=== PATIENT | female | born 1960 | race Caucasian/White ===

== ENCOUNTER → 2016-05-14 | Outpatient (CLI) | payer BC ==
--- NOTE | 2016-05-17 09:05 | MM ---
Reason for exam: screening (asymptomatic). Last mammogram was performed 1 year and 1 month ago. History: Patient is postmenopausal. Benign right US cyst aspiration of the right breast, April 20, 2005. Physical Findings: A clinical breast exam by your physician is recommended on an annual basis and results should be correlated with mammographic findings. MG Screening Mammo w CAD Bilateral CC and MLO view(s) were taken. Prior study comparison: April 25, 2015, bilateral MG screening mammo w CAD. December 25, 2012, bilateral digital screening mammo w/CAD. There are scattered fibroglandular densities. There is no discrete abnormality. No significant changes when compared with prior studies. ASSESSMENT: Negative, BI-RAD 1 RECOMMENDATION: Routine screening mammogram of both breasts in 1 year.
== END | disposition home or self-care (01) ==
LOC: RADMAMWWP 07:42
PROVIDERS: ATTEND Obstetrics & Gynecology
DX: Z12.31 Encounter for screening mammogram for malignant neoplasm of breast (principal); E55.9 Vitamin D deficiency, unspecified; Z13.29 Encounter for screening for other suspected endocrine disorder; Z13.1 Encounter for screening for diabetes mellitus; Z13.220 Encounter for screening for lipoid disorders
CPT/HCPCS: 84439; 80061; 82947; 84443; 82306; 36415; G0202

== ENCOUNTER → 2017-06-13 | Outpatient (CLI) | payer BC ==
--- NOTE | 2017-06-13 09:18 | BD ---
EXAMINATION TYPE: MG DEXA axial skeleton. DATE OF EXAM: 06/13/2017 COMPARISON: 2016 CLINICAL HISTORY: osteoporosis. Postmenopausal female. Height: 5'3 1/2 Weight: 125 FRAX RISK QUESTIONS: Alcohol (3 or more units per day): no Family History (Parent hip fracture): no Glucocorticoids (More than 3mos): no (Ex: prednisone, prednisolone, methylprednisolone, dexamethasone, and hydrocortisone). History of Fracture in Adulthood: no Secondary Osteoporosis: 1. Type 1 Diabetes: no 2. Hyperthyroidism: no 3. Menopause before 45: no 4. Malnutrition: no 5. Chronic liver disease: no Rheumatoid Arthritis: no Current Tobacco Use: no RISK FACTORS HISTORY OF: Postmenopausal woman: MEDICATIONS: Additional Medications: sleep aid Additional History: EXAM MEASUREMENTS: Bone mineral densitometry was performed using the [employer] System. Bone mineral density as measured about the Lumbar spine is: ----- L1-L4(G/cm2): 1.000 T Score Values are as follows: ----- L2: -1.2 ----- L3: -0.9 ----- L4: -2.4 ----- L1-L4: -1.5 Bone mineral density has: Decreased -3.2sincestudy of: 04/25/2015 Bone mineral density about the R hip (g/cm2): 0.756 Bone mineral density about the L hip (g/cm2): 0.791 T Score values are as follows: -----R Neck: -2.0 -----L Neck: -1.8 -----R Total: -1.3 -----L Total: -1.1 Bone mineral density has: Decreased -2.6sincestudy of: 04/25/2015 IMPRESSION: Osteopenia (T Score between -2.5 and -1). There is slightly increased risk of fracture and the patient may be considered for treatment. Re-Screen 2-5 years. NOTE: T-SCORE=SD OF THE YOUNG ADULT MEAN.
[2017-06-13 09:53] LABS: T4, Free (Free Thyroxine) 0.85 ng/dL (0.78-2.19)
--- NOTE | 2017-06-14 09:35 | MM ---
Reason for exam: screening (asymptomatic). Last mammogram was performed 1 year and 1 month ago. History: Patient is postmenopausal and history of other cancer. Benign right US cyst aspiration of the right breast, April 20, 2005. Physical Findings: A clinical breast exam by your physician is recommended on an annual basis and results should be correlated with mammographic findings. MG Screening Mammo w CAD Bilateral CC and MLO view(s) were taken. Prior study comparison: May 14, 2016, bilateral MG screening mammo w CAD. April 25, 2015, bilateral MG screening mammo w CAD. The breast tissue is heterogeneously dense. This may lower the sensitivity of mammography. There is no discrete abnormality. No significant changes when compared with prior studies. ASSESSMENT: Negative, BI-RAD 1 RECOMMENDATION: Routine screening mammogram of both breasts in 1 year.
== END | disposition home or self-care (01) ==
LOC: RADMAMWWP 07:43
PROVIDERS: ATTEND Obstetrics & Gynecology
DX: Z12.31 Encounter for screening mammogram for malignant neoplasm of breast (principal); M85.80 Other specified disorders of bone density and structure, unspecified site; E55.9 Vitamin D deficiency, unspecified; Z13.29 Encounter for screening for other suspected endocrine disorder; Z13.1 Encounter for screening for diabetes mellitus; Z13.220 Encounter for screening for lipoid disorders
CPT/HCPCS: 36415; 77067; 77080; 80061; 82306; 82947; 84439; 84443

== ENCOUNTER → 2018-07-19 | Outpatient (CLI) | payer BC ==
[2018-07-19 08:37] LABS: T4, Free (Free Thyroxine) 1.16 ng/dL (0.78-2.19)
--- NOTE | 2018-07-19 14:12 | MM ---
Reason for exam: screening (asymptomatic). Last mammogram was performed 1 year and 1 month ago. History: Patient is postmenopausal and history of other cancer. Benign right US cyst aspiration of the right breast, April 20, 2005. Physical Findings: A clinical breast exam by your physician is recommended on an annual basis and results should be correlated with mammographic findings. MG Screening Mammo w CAD Bilateral CC and MLO view(s) were taken. Prior study comparison: June 13, 2017, bilateral MG screening mammo w CAD. May 14, 2016, bilateral MG screening mammo w CAD. The breast tissue is heterogeneously dense. This may lower the sensitivity of mammography. There is no discrete abnormality. ASSESSMENT: Negative, BI-RAD 1 RECOMMENDATION: Routine screening mammogram of both breasts in 1 year.
== END | disposition home or self-care (01) ==
LOC: RADMAMWWP 06:56
PROVIDERS: ATTEND Obstetrics & Gynecology
DX: Z12.31 Encounter for screening mammogram for malignant neoplasm of breast (principal); R53.83 Other fatigue; Z13.220 Encounter for screening for lipoid disorders; Z13.1 Encounter for screening for diabetes mellitus
CPT/HCPCS: 36415; 77067; 80061; 82306; 82947; 84439; 84443

== ENCOUNTER → 2018-08-21 | Outpatient (CLI) | payer BC ==
--- NOTE | 2018-08-21 12:17 | MR ---
EXAMINATION TYPE: MR brain wo/w con DATE OF EXAM: 08/21/2018 COMPARISON: 06/21/2013 HISTORY: Meningioma TECHNIQUE: Multiplanar, multisequence images of the brain and brainstem is performed without and with IV contras t, utilizing 5.5 mL intravenous Gadavist . FINDINGS: Diffusion weighted images demonstrate no evidence of a recent infarct or other diffusion ab normality. The patient's craniotomy changes encephalomalacia with gliosis are stable. The ventricular system and cisternal spaces are normal in size and appearance. The brain volume is a ge appropriate. Midline structures demonstrate normal morphology. The craniocervical junction appears within normal limits. Post contrast images demonstrate no abnormal enhancement. The dural venous sinuses appear pa tent. The visualized sinuses are clear and the globes are intact. IMPRESSION: 1. Postsurgical changes with no evidence of recurrent neoplasm.
== END | disposition home or self-care (01) ==
LOC: RADMRIMAIN 11:20
PROVIDERS: ATTEND Specialist
DX: D32.9 Benign neoplasm of meninges, unspecified (principal); Z98.890 Other specified postprocedural states
CPT/HCPCS: 70553; A9585

== ENCOUNTER → 2019-11-12 | Outpatient (CLI) | payer BC ==
[2019-11-12 08:58] LABS: T4, Free (Free Thyroxine) 0.91 ng/dL (0.78-2.19)
--- NOTE | 2019-11-12 11:55 | BD ---
EXAMINATION TYPE: Axial Bone Density DATE OF EXAM: 11/12/2019 COMPARISON: DEXA June 13, 2017. CLINICAL HISTORY: Postmenopausal female Height: 64 Weight: 117.5 FRAX RISK QUESTIONS: Alcohol (3 or more units per day): no Family History (Parent hip fracture): no Glucocorticoids (More than 3mos): no (Ex: prednisone, prednisolone, methylprednisolone, dexamethasone, and hydrocortisone). History of Fracture in Adulthood: no Secondary Osteoporosis: 1. Type 1 Diabetes: no 2. Hyperthyroidism: no 3. Menopause before 45: no 4. Malnutrition: no 5. Chronic liver disease: no Rheumatoid Arthritis: no Current Tobacco Use: no RISK FACTORS HISTORY OF: Family History of Osteoporosis: yes Active: yes Diet low in dairy products/other sources of calcium: yes Postmenopausal woman: age 47 Lost more than 2 inches in height since high school: no Frequent falls: no MEDICATIONS: elavil Additional History: EXAM MEASUREMENTS: Bone mineral densitometry was performed using the [employer] System. Bone mineral density as measured about the Lumbar spine is: ----- L1-L4(G/cm2): 0.977 T Score Values are as follows: ----- L2: -1.7 ----- L3: -0.8 ----- L4: -2.4 ----- L1-L4: -1.7 Bone mineral density has: decreased -1.7 % since study of: 06.13.2017 Bone mineral density about the R hip (g/cm2): 0.748 Bone mineral density about the L hip (g/cm2): 0.805 T Score values are as follows: -----R Neck: -2.1 -----L Neck: -1.7 -----R Total: -1.6 -----L Total: -1.6 Bone mineral density has: decreased -3.6 % since study of: 06.13.2017 IMPRESSION: Osteopenia (T Score between -2.5 and -1) remains present. Bone density decreased or diminished from p rior. There remains slightly increased risk of fracture and the patient may be considered for treatment. Re-Screen 2-5 years. NOTE: T-SCORE=SD OF THE YOUNG ADULT MEAN.
--- NOTE | 2019-11-12 14:34 | MM ---
Reason for exam: screening (asymptomatic). Last mammogram was performed 1 year and 4 months ago. History: Patient is postmenopausal and history of other cancer. Benign right US cyst aspiration of the right breast, April 20, 2005. Physical Findings: A clinical breast exam by your physician is recommended on an annual basis and results should be correlated with mammographic findings. MG Screening Mammo w CAD Bilateral CC and MLO view(s) were taken. Prior study comparison: July 19, 2018, bilateral MG screening mammo w CAD. June 13, 2017, bilateral MG screening mammo w CAD. The breast tissue is heterogeneously dense. This may lower the sensitivity of mammography. There is no discrete abnormality. ASSESSMENT: Negative, BI-RAD 1 RECOMMENDATION: Routine screening mammogram of both breasts in 1 year.
== END | disposition home or self-care (01) ==
LOC: RADMAMWWP 07:03
PROVIDERS: ATTEND Obstetrics & Gynecology
DX: Z12.31 Encounter for screening mammogram for malignant neoplasm of breast (principal); M89.9 Disorder of bone, unspecified; M85.80 Other specified disorders of bone density and structure, unspecified site; Z13.220 Encounter for screening for lipoid disorders; Z13.1 Encounter for screening for diabetes mellitus
CPT/HCPCS: 36415; 77067; 77080; 80061; 82947; 84439; 84443

== ENCOUNTER → 2021-04-22 | Outpatient (CLI) | payer BC ==
--- NOTE | 2021-04-23 09:08 | MM ---
Reason for exam: screening (asymptomatic). Last mammogram was performed 1 year and 5 months ago. History: Patient is postmenopausal and history of other cancer. Benign right US cyst aspiration of the right breast, April 20, 2005. Physical Findings: A clinical breast exam by your physician is recommended on an annual basis and results should be correlated with mammographic findings. MG Screening Mammo w CAD Bilateral CC and MLO view(s) were taken. Prior study comparison: November 12, 2019, bilateral MG screening mammo w CAD. July 19, 2018, bilateral MG screening mammo w CAD. The breast tissue is heterogeneously dense. This may lower the sensitivity of mammography. No significant changes when compared with prior studies. ASSESSMENT: Negative, BI-RAD 1 RECOMMENDATION: Routine screening mammogram of both breasts in 1 year.
== END | disposition home or self-care (01) ==
LOC: RADMAMWWP 11:30
PROVIDERS: ATTEND Family Medicine
DX: Z12.31 Encounter for screening mammogram for malignant neoplasm of breast (principal)
CPT/HCPCS: 77067

== ENCOUNTER → 2022-07-19 | Outpatient (CLI) | payer BC ==
--- NOTE | 2022-07-20 10:11 | MM ---
Reason for Exam: Screening (asymptomatic). Last mammogram was performed 1 year(s) and 3 month(s) ago. Patient History: Menarche at age 10. First Full-Term at age 22. Postmenopausal. Patient has history of breast feeding. 04/20/2005, Benign Cyst Aspiration on the right side. Risk Values: Brianna 5 year model risk: 1.4%. NCI Lifetime model risk: 6.0%. Prior Study Comparison: 07/19/2018 Bilateral Screening Mammogram, [facility]. 11/12/2019 Bilateral Screening Mammogram, [facility]. 04/22/2021 Bilateral Screening Mammogram, [facility]. Tissue Density: The breast tissue is heterogeneously dense. This may lower the sensitivity of mammography. Findings: Analyzed By CAD. Pattern appears symmetrical and stable. No significant interval change is evident. No suspicious groups of microcalcifications, spiculated or lobular masses, architectural distortion or other secondary signs of malignancy are mammographically apparent. Overall Assessment: Negative, BI-RAD 1 Management: Screening Mammogram of both breasts in 1 year. A negative mammogram report should not preclude additional follow up of suspicious palpable abnormalities. Patient should continue monthly self breast exam. A clinical breast exam by your physician is recommended on an annual basis and results should be correlated with mammographic findings. Electronically signed and approved by: Abbe Soares D.O. Radiologis
== END | disposition home or self-care (01) ==
LOC: RADMAMWWP 10:47
PROVIDERS: ATTEND Family Medicine
DX: Z12.31 Encounter for screening mammogram for malignant neoplasm of breast (principal); Z78.0 Asymptomatic menopausal state
CPT/HCPCS: 77067

== ENCOUNTER → 2022-12-10 | Outpatient (CLI) | payer BC ==
--- NOTE | 2022-12-13 23:37 | HM ---
HOLTER MONITOR REPORT The patient was monitored for 24 hours. CLINICAL INFORMATION: Baseline rhythm is a sinus mechanism with normal conduction. The average rate 84 beats per minute, minimum 65, maximum 120 beats per minute. Ventricular ectopic activity was present in form of rare single PVCs. Supraventricular ectopic activity was present in form of rare single PACs. No diary was available. CONCLUSION: 1. Sinus mechanism baseline rhythm. 2. Rare ventricular ectopic activity. 3. Rare supraventricular ectopic activity. 4. No diary was available. MMODL / IJN: [id number] /
== END | disposition home or self-care (01) ==
LOC: RADECHMAIN 07:13
PROVIDERS: ATTEND Family Medicine
DX: R00.2 Palpitations (principal)
CPT/HCPCS: 93225; 93226

== ENCOUNTER → 2023-10-27 | Outpatient (CLI) | payer OTHER ==
--- NOTE | 2023-10-28 09:52 | MM ---
Reason for Exam: Screening (asymptomatic). Last mammogram was performed 1 year(s) and 3 month(s) ago. Patient History: Menarche at age 10. First Full-Term at age 22. Postmenopausal. Patient has history of breast feeding. 04/20/2005, Benign Cyst Aspiration on the right side. Risk Values: Brianna 5 year model risk: 1.4%. NCI Lifetime model risk: 5.8%. Prior Study Comparison: 11/12/2019 Bilateral Screening Mammogram, [facility]. 04/22/2021 Bilateral Screening Mammogram, [facility]. 07/19/2022 Bilateral MG screening mammo w CAD, [facility]. Tissue Density: The breasts are heterogeneously dense, which may obscure small masses. Findings: Analyzed By CAD. There is no suspicious group of microcalcifications or new suspicious mass in either breast. Overall Assessment: Negative, BI-RAD 1 Management: Screening Mammogram of both breasts in 1 year. . Patient should continue monthly self-breast exams. A clinical breast exam by your physician is recommended on an annual basis. This exam should not preclude additional follow-up of suspicious palpable abnormalities. Note on Brianna scores and lifetime risk: 1. A Brianna score greater than 3% is considered moderate risk. If this is the case, consider specialist referral to assess eligibility for a risk reducing agent. 2. If overall lifetime risk for the development of breast cancer is 20% or higher, the patient may qualify for future screening with alternating mammogram and breast MRI. Electronically signed and approved by: Geoffrey Herndon M.D. Radiologis
== END | disposition home or self-care (01) ==
LOC: RADMAMWWP 12:28
PROVIDERS: ATTEND Family Medicine
DX: Z12.31 Encounter for screening mammogram for malignant neoplasm of breast (principal); R92.333 Mammographic heterogeneous density, bilateral breasts; Z78.0 Asymptomatic menopausal state
CPT/HCPCS: 77067